=== PATIENT | female | born 1955 | race Caucasian/White ===

== ENCOUNTER 2022-09-06 16:10 | Emergency (ER) | payer MEDICARE, OTHER ==
[2022-09-06] MEDS ORDERED: PERCOCET TABLET 5/325MG PO ONE (16:47)
[2022-09-06 16:48] VITALS: O2SAT 95
[2022-09-06] MEDS ORDERED: PERCOCET TABLET 5/325MG ONE (16:49)
--- NOTE | 2022-09-06 17:08 | ERPHSYRPT ---
- History of Present Illness Time Seen by Provider: 09/06/22 16:18 Source: patient Exam Limitations: no limitations Patient Subjective Stated Complaint: Left arm pain Triage Nursing Assessment: Patient ambulated back to ED and transferred self to bed. Patient A+O x3. Patient's skin pink, warm and dry. Patient complains of left upper arm pain for two weeks but woke up today with a large bruise and swelling to left upper arm (bicep) area. Patient complains of pain 5/10. Physician History: 67 years old female presented in the ER with chief complaint of left arm swelling and bruising since morning. Patient reports she has been having off-and-on pain with movements of left upper extremity in the arm with some radiation to the left shoulder/clavicle area and this morning she woke up with a bruise and swelling with dull aching to sharp moderate intensity pain especially with movements. No numbness or tingling in the hand/forearm. Denies any fall or trauma. Occurred: days ago Quality: sharpness Severity of Pain-Max: moderate Severity of Pain-Current: moderate Extremities Pain Location: arm: left Modifying Factors: Improves With: immobilization. 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 - Vaccination Dates Date of 2cond Vaccination (if applicable): na - Review of Systems Constitutional: No Symptoms Ears, Nose, & Throat: No Symptoms Respiratory: No Symptoms Cardiac: No Symptoms Abdominal/Gastrointestinal: No Symptoms Genitourinary Symptoms: No Symptoms Musculoskeletal: Myalgias Skin: No Symptoms Neurological: No Symptoms Endocrine: No Symptoms Hematologic/Lymphatic: No Symptoms Immunological/Allergic: No Symptoms - Past Medical History Pertinent Past Medical History: Yes Neurological History: No Pertinent History ENT History: No Pertinent History Cardiac History: High Cholesterol, Hypertension Respiratory History: No Pertinent History Endocrine Medical History: No Pertinent History Musculoskeletal History: Arthritis GI Medical History: No Pertinent History History: No Pertinent History Psycho-Social History: Depression Female Reproductive Disorders: No Pertinent History - Past Surgical History Past Surgical History: Yes Musculoskeletal: Joint Replacement Female Surgical History: Hysterectomy, Lumpectomy Other Surgical History: Right knee replacement - Social History Smoking Status: Never smoker Exposure to second hand smoke: No Drug Use: none Patient Lives Alone: No - Nursing Vital Signs Nursing Vital Signs: Initial Vital Signs Temperature 97.3 F 09/06/22 16:37 Pulse Rate 92 H 09/06/22 16:37 Respiratory Rate 18 09/06/22 16:37 Blood Pressure 169/75 09/06/22 16:37 O2 Sat by Pulse Oximetry 95 09/06/22 16:37 Pain Scale Pain Intensity 5 - Physical Exam General Appearance: no apparent distress, alert Neck Exam: normal inspection, full range of motion Cardiovascular/Respiratory Exam: chest non-tender, normal breath sounds, regular rate/rhythm Back Exam: normal inspection Shoulder Exam: normal inspection, non-tender, no evidence of injury, normal ROM, soft tissue tenderness (Left forearm distal anterior with 4 x 5 cm bruising. No fluctuation. No bony tenderness.), swelling Elbow/Forearm Exam: normal inspection, no evidence of injury, normal ROM Wrist Exam: normal inspection Hand Exam: normal inspection Neuro/Tendon Exam: normal sensation, normal motor functions Mental Status Exam: alert, oriented x 3, cooperative Skin Exam: normal color SpO2 Interpretation: normal SpO2: 95 O2 Delivery: Room Air Ordered Tests: Active Orders 24 hr Category Date Time Status Ultrasound Unilateral Extremities [VENOUS UNILAT/ Exams 09/06/22 16:51 Taken LIMITED EXTREMIT] [US] Stat Medication Summary Discontinued Medications Generic Name Dose Route Start Last Admin Trade Name Radhika PRN Reason Stop Dose Admin Oxycodone/Acetaminophen 1 tab 09/06/22 16:47 09/06/22 16:49 Oxycodone Hcl/Apap 5 Mg/325 Mg Tablet PO 09/06/22 16:48 1 tab STAT ONE Administration Oxycodone/Acetaminophen Confirm 09/06/22 16:49 Oxycodone Hcl/Apap 5 Mg/325 Mg Tablet Administered 09/06/22 16:50 Dose 1 tab .ROUTE .[facility] ONE - Progress Progress: improved, re-examined Progress Note: 09/06/22 17:46 She is given symptomatic treatment for pain. Feeling better on reevaluation. Ultrasound obtained which showed some fluid collection which could be a small hematoma but no other acute findings like blood clot. It is possible she has a rupture bicep tendon one of the head. Recommended outpatient follow-up with orthopedic surgery for further evaluation. Avoid exertional activity, ice and pain medications as needed. Counseled pt/family regarding: diagnosis, need for follow-up, rad results - Departure Departure Disposition: Home Clinical Impression: Left arm swelling Condition: Stable Critical Care Time: No Referrals: DENISE ALEJANDRA MD [Primary Care Provider] - Follow up/PCP as directed (1-2 days for reevaluation) ORTHO - RAFA MONTERO NP [NON-STAFF PHY W/O PRIVILEGES] - Follow up/PCP as directed (1-2 days for reevaluation) Instructions: Biceps Tendon Rupture (DC) Additional Instructions: Intermittent ice application. Take Tylenol/ibuprofen as needed for pain. Follow-up with orthopedics for reevaluation. Avoid exertional work with left upper extremity. Return to ER for any worsening.
[2022-09-06] MEDS ORDERED: NORCO 5/325 MG PO ONE (17:48)
[2022-09-06] MEDS ORDERED: NORCO 5/325 MG ONE (17:53)
[2022-09-06 17:57] VITALS: BP 148/85; PULSE 76
--- NOTE | 2022-09-06 19:58 | XRAY ---
Indication: Left arm swelling/bruising. Two-dimensional sonogram and color Doppler imaging of the major venous vessels of the left upper extremity performed. Comparison: None No thrombus seen in the visualized left jugular, subclavian, axillary, basilic, brachial, cephalic, ulnar, and ulnar veins. Veins demonstrate normal compressibility. Venous waveforms are normal. Targeted ultrasound over swelling/bruising negative for focal solid/cystic mass or abnormal fluid collection. Impression: Left upper extremity negative for venous thrombosis. Comment: Preliminary report was given.
== END 2022-09-06 18:01 | disposition home or self-care (01) ==
LOC: ED 16:10
DX: R60.0 Localized edema (principal); M79.602 Pain in left arm; E78.5 Hyperlipidemia, unspecified; I10 Essential (primary) hypertension
CPT/HCPCS: 93971; 99282; A9270-GY

== ENCOUNTER 2022-10-13 12:28 | Emergency (ER) | payer MEDICARE, OTHER ==
[2022-10-13] MEDS ORDERED: Hydromorphone 1 mg/ml Injection IM ONE (12:33)
[2022-10-13] MEDS ORDERED: ZOFRAN ODT 4 MG PO PRN (12:35)
[2022-10-13] MEDS ORDERED: Hydromorphone 1 mg/ml Injection ONE (12:44)
--- NOTE | 2022-10-13 13:38 | XRAY ---
Indication: Pain following fall. Comparison: None 2 view left humerus demonstrates mildly displaced and mildly angulated comminuted humeral neck fracture. Elsewhere osteopenia, moderate acromioclavicular degenerative arthropathy, and mild degenerative changes visualized spine. No other bony, articular, or soft tissue abnormalities.
--- NOTE | 2022-10-13 13:38 | XRAY ---
Indication: Pain following fall. Comparison: None 3 view left shoulder demonstrates mildly displaced and mildly angulated comminuted humeral neck fracture. Elsewhere osteopenia, moderate acromioclavicular degenerative arthropathy, and 7mm scapula bone island. No other bony, articular, or soft tissue abnormalities.
--- NOTE | 2022-10-13 13:40 | XRAY ---
Indication: Pain following fall. Comparison: None 4 view facial bones demonstrates osteopenia and mild/moderate degenerative changes visualized cervical spine. Paranasal sinuses are clear. No other bony, articular, or soft tissue abnormalities.
--- NOTE | 2022-10-13 13:40 | XRAY ---
Indication: Pain following fall. Comparison: None 3 view right knee demonstrates osteopenia and total knee arthroplasty with intact prosthesis/articulation. Minimal posterior vascular calcifications. No other bony, articular, or soft tissue abnormalities.
[2022-10-13 14:06] VITALS: BP 149/110; PULSE 68; O2SAT 96
--- NOTE | 2022-10-13 14:19 | ERPHSYRPT ---
- History of Present Illness Time Seen by Provider: 10/13/22 12:50 Source: patient Exam Limitations: no limitations Patient Subjective Stated Complaint: PT HERE FOR A GROUND FALL, SHE STATES SHE TRIPPED OVER FEET AND LANDED ON WOODEN RAMP, CO PAIN TO LEFT SHOULDER,RIGH KNEE AND RIGHT SIDE OF FACE, Triage Nursing Assessment: PT ALERT, RESP EASY, FACE MASK IN PLACE, HAS LEFT SHOULDER IN SLING, SMALL ABRASION TO NOSE, STATES GLASSED WERE BROKE, HAS STRONG RADIAL PULSE Physician History: Patient is a 67-year-old white female who was on a ramp and stubbed her toe and fell landing primarily on her left shoulder and also hitting her face and banging her right knee. She denies any loss of consciousness her main complaint is her left shoulder and upper arm. Occurred: just prior to arrival Method of Injury: fell Quality: constant, aching Severity of Pain-Max: severe Severity of Pain-Current: moderate Extremities Pain Location: shoulder: left (Tenderness over the left shoulder and proximal humerus), arm: left Modifying Factors: Improves With: nothing Allergies/Adverse Reactions: No Known Drug Allergies Allergy (Verified 10/13/22 12:34) Hx Tetanus, Diphtheria Vaccination/Date Given: No (UNSURE) Hx Influenza Vaccination/Date Given: Yes Hx Pneumococcal Vaccination/Date Given: No Immunizations Up to Date: Yes Travel Risk - International Travel Have you traveled outside of the country in past 3 weeks: No - Coronavirus Screening Are you exhibiting any of the following symptoms?: No - Vaccine Status Have you recieved a Covid-19 vaccination: Yes Manager Erp: Moderna - Vaccination Dates Date of 2cond Vaccination (if applicable): ? - Review of Systems Constitutional: No Fever, No Chills Eyes: No Symptoms Ears, Nose, & Throat: No Symptoms Respiratory: No Cough, No Dyspnea Cardiac: No Chest Pain, No Edema, No Syncope Abdominal/Gastrointestinal: No Abdominal Pain, No Nausea, No Vomiting, No Diarrhea Genitourinary Symptoms: No Dysuria Musculoskeletal: Joint Pain, No Back Pain, No Neck Pain Skin: No Rash Neurological: No Dizziness, No Focal Weakness, No Sensory Changes Psychological: No Symptoms Endocrine: No Symptoms All Other Systems: Reviewed and Negative - Past Medical History Pertinent Past Medical History: Yes Neurological History: No Pertinent History ENT History: No Pertinent History Cardiac History: High Cholesterol, Hypertension Respiratory History: No Pertinent History Endocrine Medical History: No Pertinent History Musculoskeletal History: Arthritis GI Medical History: No Pertinent History History: No Pertinent History Psycho-Social History: Depression Female Reproductive Disorders: No Pertinent History - Past Surgical History Past Surgical History: Yes Musculoskeletal: Joint Replacement Female Surgical History: Hysterectomy, Lumpectomy Other Surgical History: Right knee replacement - Social History Smoking Status: Never smoker Exposure to second hand smoke: No Drug Use: none Patient Lives Alone: No - Nursing Vital Signs Nursing Vital Signs: Initial Vital Signs Temperature 96.6 F 10/13/22 12:39 Pulse Rate 79 10/13/22 12:39 Respiratory Rate 18 10/13/22 12:39 Blood Pressure 200/120 10/13/22 12:39 O2 Sat by Pulse Oximetry 100 10/13/22 12:39 Pain Scale Pain Intensity 4 - Physical Exam General Appearance: mild distress, alert Eyes, Ears, Nose, Throat Exam: normal ENT inspection, moist mucous membranes Neck Exam: non-tender, supple Cardiovascular/Respiratory Exam: chest non-tender, normal breath sounds, regular rate/rhythm, no respiratory distress Abdominal Exam: non-tender, No guarding Back Exam: normal inspection, No vertebral tenderness Shoulder Exam: bone tenderness, deformity, limited ROM, soft tissue tenderness Elbow/Forearm Exam: normal inspection, no evidence of injury, normal ROM, soft tissue tenderness Wrist Exam: normal inspection, no evidence of injury, normal ROM Hand Exam: normal inspection, non-tender, no evidence of injury, normal ROM Neuro/Tendon Exam: normal sensation, normal motor functions Mental Status Exam: alert, oriented x 3, cooperative Skin Exam: normal color, warm, dry SpO2 Interpretation: normal SpO2: 96 O2 Delivery: Room Air Procedures - Splinting Time of Procedure: 14:15 Location of Splint: Left, Upper Arm Type of Splint: Other (Sling and swath) Splint Applied By: ED Nurse Pre-Proc Neuro Vasc Exam: normal Post-Proc Neuro Vasc Exam: neurovascular intact - Radiology Exams Humerus X-ray Interpretation: Interpreted by me (X-rays show a comminuted mildly displaced fracture of the proximal left humerus) Ordered Tests: Active Orders 24 hr Category Date Time Status FACIAL BONES (MINIMUM 3 VIEWS) Stat Exams 10/13/22 12:34 Completed HUMERUS Stat Exams 10/13/22 12:34 Completed KNEE (3 VIEWS) Stat Exams 10/13/22 12:34 Completed SHOULDER Stat Exams 10/13/22 12:35 Completed Medication Summary Generic Name Dose Route Start Last Admin Trade Name Freq PRN Reason Stop Dose Admin Ondansetron HCl 4 mg 10/13/22 12:35 10/13/22 12:44 Zofran 4 Mg/Udtablet Orally Disintegrating PO 11/12/22 12:34 4 mg Q4H PRN PRN Administration NAUSEA/VOMITING Discontinued Medications Generic Name Dose Route Start Last Admin Trade Name Freq PRN Reason Stop Dose Admin Hydromorphone HCl 1 mg 10/13/22 12:33 10/13/22 12:45 Hydromorphone 1 Mg/1ml Inj 1 Mg/Ml Syringe IM 10/13/22 12:34 1 mg STAT ONE Administration Hydromorphone HCl Confirm 10/13/22 12:44 Hydromorphone 1 Mg/1ml Inj 1 Mg/Ml Syringe Administered 10/13/22 12:45 Dose 1 mg .ROUTE .[facility] ONE - Progress Progress: improved - Departure Departure Disposition: Home Clinical Impression: Fracture of left humerus Condition: Stable Critical Care Time: No Referrals: DENISE ALEJANDRA MD [Primary Care Provider] - Follow up/PCP as directed Instructions: Shoulder Fracture (DC) Prescriptions: Hydrocodone/Acetaminophen [Hydrocodone-Acetamin 5-325 mg] 1 tab PO Q6HPRN PRN 3 Days #12 tablet MDD 4 PRN Reason: Pain
== END 2022-10-13 14:47 | disposition home or self-care (01) ==
LOC: ED 12:28
DX: S42.202A Unspecified fracture of upper end of left humerus, initial encounter for closed fracture (principal); W01.0XXA Fall on same level from slipping, tripping and stumbling without subsequent striking against object, initial encounter; M25.561 Pain in right knee; R51.9 Headache, unspecified; E78.5 Hyperlipidemia, unspecified; I10 Essential (primary) hypertension; Z79.891 Long term (current) use of opiate analgesic
CPT/HCPCS: 70150; 73030; 73060; 73562; 96372; 99283; J1170; L3650; Q0162